=== PATIENT | male | born 1945 | race Caucasian/White ===

== ENCOUNTER → 2022-02-21 13:00 | Outpatient (CLI) | payer MEDICARE, SELFPAY ==
--- NOTE | ~2022-02-21 | CT_ITS ---
EXAMINATION:CT chest high resolution wo mi DATE: 02/21/2022 13:16 INDICATION: Hypercalcemia. Shortness of breath. TECHNIQUE: Computed tomography (CT) of the chest was performed without intravenous contrast. Automate d exposure control and iterative reconstruction technique were employed. The dose-length product (DLP ) was 402.37 mGy-cm. COMPARISON: None. FINDINGS: There is a 4 mm nodule at left major fissure, likely benign. No pleural effusion. The heart size is normal. There are coronary artery calcifications. There are calcifications of aortic valve. No pericardial effusion. There are no pathologically enlarged lymph nodes. There are cysts in the [place] er measuring up to 2.2 cm. Partially visualized are cysts in the kidneys measuring up to 2.7 cm on th e left. There is severe thoracic spondylosis. IMPRESSION: 1. No evidence of malignancy. Reviewed, dictated and finalized at location A.
== END ==
PROVIDERS: Visit Provider Physician Assistant
DX: D86.9 Sarcoidosis, unspecified (principal); E83.52 Hypercalcemia
CPT/HCPCS: 71250

== ENCOUNTER 2023-01-02 10:05 | Emergency (ER) | payer MEDICARE, SELFPAY ==
--- NOTE | ~2023-01-02 | XR_ITS ---
XR hand RT min 3V 01/02/2023 10:38 Indication: Posterior laceration in the right hand by saw Procedure: 3 views right hand Comparison: 01/14/2018 Findings: There are fractures involving the distal aspect of the second, third, fourth and fifth meta carpals with overlying soft tissue laceration, consistent with saw injury. 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 There is chondrocalcinosis. There is a small radiopaque foreign body seen in the dorsal soft tissues on the oblique image. This could represent a bone fragment or metallic foreign body. Impression: 1: Fractures involving the distal aspect of the second, third, fourth and fifth metacarpals with over lying soft tissue laceration. Reviewed, dictated and finalized at location A. [employer] Impression: 1: Fractures involving the distal aspect of the second, third, fourth and fifth metacarpals with overlying soft tissue laceration.
[2023-01-02 10:08] VITALS: BP 108/64; PULSE 62; RESP 20; TEMP 36.6; O2SAT 97
[2023-01-02] MEDS: MORPHINE SULFATE (*CRX) 4 MG/ML INJ IV PUSH (10:52)
[2023-01-02] MEDS: ONDANSETRON INJ 4 MG/2 ML VIAL IV PUSH (10:52)
--- NOTE | 2023-01-02 10:56 | ED.UPPEXIN ---
HPI - Extremity Injury (Upper) General Chief Complaint: Extremity Injury, Upper <Rose Thayer PA-C - Last Filed: 01/02/23 12:41> Stated Complaint: right hand injury <JACQUIE Rodriguez Last Filed: 01/02/23 12:41> Time Seen by Provider: 01/02/23 10:16 <Rose Thayer PA-C - Last Filed: 01/02/23 12:41> Source: patient <JACQUIE Rodriguez Last Filed: 01/02/23 12:41> Mode of arrival: ambulatory <JACQUIE Rodriguez Last Filed: 01/02/23 12:41> Limitations: no limitations <JACQUIE Rodriguez Last Filed: 01/02/23 12:41> History of Present Illness HPI narrative: This is a 77-year-old male that presents to the emergency department after a laceration sustained via a table saw. Reports he was doing some wood working and sustained a laceration to his right hand. He is unable to move the 2nd-4th fingers of his hand. He is not up-to-date on tetanus. He is not on any blood thinners. He is right-hand dominant. Denies numbness. <Rose Thayer PA-C - Last Filed: 01/02/23 12:41> Related Data Home Medications: Home Medications Medication Instructions Recorded Confirmed cholecalciferol (vitamin D3) 100 4,000 unit PO DAILY 11/09/19 12/16/22 mcg (4,000 unit) tablet vitamin E (dl, acetate) 450 mg 1,000 unit PO DAILY 11/09/19 12/16/22 (1,000 unit) capsule coenzyme Q10 100 mg capsule 100 mg PO DAILY 11/30/21 12/16/22 multivitamin with minerals 1 tablet PO DAILY 11/30/21 12/16/22 (Multiple Vitamin-Minerals tablet) selenium 200 mcg tablet 200 mcg PO DAILY 11/30/21 12/16/22 zinc 50 mg tablet 30 mg PO DAILY 11/30/21 12/16/22 <JACQUIE Rodriguez Last Filed: 01/02/23 12:41> Allergies/Adverse Reactions: Allergies Allergy/AdvReac Type Severity Reaction Status Date / Time No Known Allergies Allergy Verified 12/12/22 08:47 <Rose Thayer PA-C - Last Filed: 01/02/23 12:41> Review of Systems Review of Systems: CONSTITUTIONAL: Denies fever SKIN: Reports laceration MUSCULOSKELETAL: Reports joint pain, and myalgia. NEUROLOGIC: Denies numbness <Rose Thayer PA-C - Last Filed: 01/02/23 12:41> All systems reviewed & are unremarkable except as noted in HPI and below <Rose Thayer PA-C - Last Filed: 01/02/23 12:41> [facility] Past Medical History Medical History: Medical History (Updated 01/02/23 @ 11:05 by Rose Thayer PA-C) Essential (primary) hypertension Heart murmur Hypothyroidism, unspecified Pure hypercholesterolemia, unspecified Wears hearing aid <Rose Thayer PA-C - Last Filed: 01/02/23 12:41> Surgical History Surgical History: Surgical History History of back surgery (~1975) History of hernia repair (~1979) History of tonsillectomy <Rose Thayer PA-C - Last Filed: 01/02/23 12:41> Family History Family History: Family History Father Family history of lung cancer Mother Family history of malignant neoplasm of breast in first degree relative Sibling Family history of lung cancer Father Family history of lung cancer Patient's father is Sibling Family history of lung cancer, Onset Age: 50 Patient's sister is Patient's brother is Family history of malignant neoplasm Mother Patient's mother is <Rose Thayer PA-C - Last Filed: 01/02/23 12:41> Social History Social History: Social History Smoking status: Never smoker Second hand tobacco smoke exposure: No Alcohol intake: current Substance use: unknown Lack of Transportation: No Lack of Food: Never True Current Housing: I Have Housing Concerned About Future Housing: No Difficulty Paying Gas/Electric Bills: No Difficulty Paying for Meds: No Currently Unemployed: No Education: Decline to [employer]
[2023-01-02 11:23] VITALS: O2SAT 97
[2023-01-02 11:30] VITALS: O2SAT 96
[2023-01-02 11:31] VITALS: BP 101/47; O2SAT 95
[2023-01-02 11:32] VITALS: O2SAT 96
--- NOTE | 2023-01-02 11:41 | PC.NURSE ---
At this time patient does not have sensation in his index finger but he has sensation in his ring finger and middle finger
--- NOTE | 2023-01-02 11:56 | PC.NURSE ---
called house sup. asked to get on first available amb. transfer list at 13:00, asked to call other services, so it would not interfere with [facility] discharges.1120, called [facility], due to pt condition cancelled [facility]40, called [facility] upgraded to [facility] si[facility].1126.
[2023-01-02] MEDS: TETANUS,DIPHTHERIA,AC PERTUSSIS ADULT (0.5 ML) BOOSTRIX IM (12:16)
--- NOTE | 2023-01-02 12:21 | PC.NURSE ---
called [facility] 1115 eta 1430 to 1500, changed to [facility] at 1126. eta 1230.
[2023-01-02 12:45] VITALS: BP 102/57; PULSE 77; RESP 16; O2SAT 97
== END 2023-01-02 12:58 | disposition short-term general hospital (02) ==
PROVIDERS: Emergency Provider Physician Assistant; PCP Physician Assistant
DX: S62.300B Unspecified fracture of second metacarpal bone, right hand, initial encounter for open fracture (principal); S62.302B Unspecified fracture of third metacarpal bone, right hand, initial encounter for open fracture; S62.304B Unspecified fracture of fourth metacarpal bone, right hand, initial encounter for open fracture; S62.306B Unspecified fracture of fifth metacarpal bone, right hand, initial encounter for open fracture; W31.2XXA Contact with powered woodworking and forming machines, initial encounter; I10 Essential (primary) hypertension; E03.9 Hypothyroidism, unspecified; R01.1 Cardiac murmur, unspecified; Z23 Encounter for immunization
CPT/HCPCS: 73130; 90471; 90715; 96365; 96375; 99285; J0690; J2270; J2405

== ENCOUNTER 2023-04-02 14:30 | Outpatient (RCR) | payer MEDICARE, SELFPAY ==
--- NOTE | 2023-01-25 14:18 | OTOPEVAL1 ---
Assessment and note entered by Zechariah Groves, PAULINE/Angeline, CHT Evaluation Information Assessment Status Evaluation Subjective Information Patient presents to outpatient hand therapy s/p table saw injury with open nondisplaced fractures of MCPs of digits II-V s/p fixation with percutaneous pins as well as repair of 5 extensor tendons at the level of the MCP shaft. He presents today in a removable thermoplastic splint immobilizing the wrist in neutral and the MCPs in full extension. IPs are free. He has a night extension seo to position the IPs in full extension. Reported Pain Level Pain Score 0: Self Report Additional Pain Score Comments Patient only reporting tightness with ROM. Assessment OT Clinical Summary Patient referred to outpatient hand therapy following table saw injury where he sustained open fractures to MCPs II-V as well as extensor tendon lacerations. He is s/p tendon repair as well as fixation of the fractures ~3 weeks ago. Skilled OT indicated for edema management, ROM of IPs and thumb, scar mobilization and management, and splint adjustments as needed. Plan to see him 1x/ week x3 weeks. He is scheduled to have the pin removal on 02/13/23. Will see him that week and then increase therapy frequency to 2x/week for an additional 3 weeks. Plan of Care Interventions Therapeutic Exercise,Manual Therapy,Check Out for Orthotic/Pr OT Services Indicated Yes Treatment Frequency and 1-2x/week for 6 weeks Duration These treatments will address the objective and functional deficits as defined above. The patient will be advanced safely and appropriately in order for the patient to progress towards his/her prior level of function. Additional exercises will be introduced and as well as a comprehensive home exercise program upon discharge, if needed, ?to ensure carryover of functional gains achieved in the clinic. This treatment plan has been reviewed and agreement upon by the patient.
--- NOTE | 2023-02-15 10:08 | OTOPPROG ---
Assessment and note entered by Zechariah Groves, DARÍOR/Angeline, CHT Evaluation Information Assessment Status Progress Subjective Information Patient presents to outpatient hand therapy s/p table saw injury with open nondisplaced fractures of MCPs of digits II-V s/p fixation with percutaneous pins as well as repair of 5 extensor tendons at the level of the MCP shaft. He presents today after pin removal (02/13/23) and no longer wearing a splint. He has been working on active ROM of all the joints since then, received an upgraded HEP from [facility]. He is reporting minimal pain, just tightness. He states he is trying to use his hand for light tasks, like when getting dressed, but continues to be unable to do fine motor tasks such as buttons. When attempting to make a fist, the fingers are 4- 6 cm away from touching the palm. With active finger extension, the MCPs have about 30 degree extension lag and the PIPs have roughly 20-40 degree extension lags. Limitations include scar tissue, weakness, edema, and stiffness. Assessment OT Clinical Summary Patient referred to outpatient hand therapy following table saw injury where he sustained open fractures to MCPs II-V as well as extensor tendon lacerations. He is s/p tendon repair as well as fixation of the fractures ~6 weeks ago. He is s/p pin removal 2 days ago. His HEP was upgraded for active ROM of all of the involved joints. Scar massage has been initiated as well as continued edema management via compression glove and massage . Continued skilled OT indicated for edema management, ROM, scar mobilization and management, modalities, manual therapy, and HEP progression. His therapy schedule has been increased to 2x/week for 3 weeks. Plan of Care Interventions Therapeutic Exercise,Manual Therapy,Neuro Re- education,Therapeutic Activities,Hot Pack/Cold Pack,Electrical Stimulation,Check Out for Orthotic /Pr,Ultrasound,Paraffin OT Services Indicated Yes These treatments will address the objective and functional deficits as defined above. The patient will be advanced safely and appropriately in order for the patient to progress towards his/her prior level of function. Additional exercises will be introduced and as well as a comprehensive home exercise program upon discharge, if needed, ?to ensure carryover of functional gains achieved in the clinic. This treatment plan has been reviewed and agreement upon by the patient.
--- NOTE | 2023-03-06 14:13 | OTOPPROG ---
Assessment and note entered by Zechariah Groves, DARÍOR/Angeline, CHT Evaluation Information Assessment Status Progress Subjective Information Patient presents to outpatient hand therapy s/p table saw injury with open nondisplaced fractures of MCPs of digits II-V s/p fixation with percutaneous pins as well as repair of 5 extensor tendons at the level of the MCP shaft. He is s/p pin removal (02/13/23). No longer wearing a splint. He has been working on active and passive ROM of all the joints. He is reporting no pain, just tightness. He has progressed to being able to use his hand to do fine motor tasks, such as buttons, now. He reports his biggest deficit is being unable to open his hand wide enough to grab objects. When attempting to make a fist, the fingers are 2- 4 cm away from touching the palm. This improved from 4-6 cm. Active finger extension has remained relatively unchanged in the last 3 weeks: the MCPs have about 30 degree extension lag and the PIPs have roughly 20-40 degree extension lags. Limitations include scar tissue, weakness, edema, and stiffness. Sessions have been focusing on active and passive ROM of the fingers, scar management, edema management. Assessment OT Clinical Summary Patient referred to outpatient hand therapy following table saw injury where he sustained open fractures to MCPs II-V as well as extensor tendon lacerations. He is s/p tendon repair as well as fixation of the fractures ~9 weeks ago. His HEP has progress from active ROM to passive ROM of all digits. Scar mobilization has been integral to the therapy process. We have also been completing e-stim for improved finger extension. Overall the patient is making progress with finger flexion. Gross finger extension continues to be limited at the MCP joints. Continued skilled OT indicated for therapeutic exercise, active/passive ROM, HEP progression, scar mobilization, modalities, and manual therapy. Plan of Care Interventions Therapeutic Exercise,Manual Therapy,Neuro Re- education,Therapeutic Activities,Hot Pack/Cold Pack,Electrical Stimulation,Check Out for Orthotic /Pr,Ultrasound,Paraffin OT Services Indicated Yes
--- NOTE | 2023-04-02 15:08 | OTOPDC ---
Assessment and note entered by Zechariah Groves, DARÍOR/Angeline, CHT Evaluation Information Assessment Status Discharge Subjective Information Patient presents to outpatient hand therapy s/p table saw injury with open nondisplaced fractures of MCPs of digits II-V s/p fixation with percutaneous pins as well as repair of 5 extensor tendons at the level of the MCP shaft. He is s/p pin removal (02/13/23). No longer wearing a splint. He has been working on active and passive ROM of all the joints and has progressed to strengthening . He is reporting no pain, just tightness. 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 He reports he is back to using his tools in his woodworking shed and that his strength feels good. When attempting to make a fist, the fingers have 1 -3cm gap before touching the palm. Each finger has improved by 1 cm since our last re-assessment a month ago. The MCP and PIP joints are flexing and extending through more ROM also. MCP extension lags are measuring about 15-30 degrees. Reported Pain Level Pain Score 0: Self Report Assessment OT Clinical Summary Patient referred to outpatient hand therapy following table saw injury where he sustained open fractures to MCPs II-V as well as extensor tendon lacerations. He is s/p tendon repair as well as fixation of the fractures ~13 weeks ago. His HEP has progress from active ROM to passive ROM to strengthening. Scar mobilization has been integral to the therapy process. We have also been completing e-stim for improved finger extension. The patient is making slow and steady progress with functional ROM and strength. At this time he is independent with all materials to continue on his own. Discharging with patient independent with HEP. Plan of Care OT Services Indicated No
== END 2023-04-04 10:35 | disposition home or self-care (01) ==
LOC: ANHOT 14:30
PROVIDERS: PCP Internal Medicine
DX: S62.300D Unspecified fracture of second metacarpal bone, right hand, subsequent encounter for fracture with routine healing (principal)
CPT/HCPCS: 97018; 97035; 97110; 97140; 97165; 97763